=== PATIENT | male | born 1950 | race Caucasian/White ===

== ENCOUNTER 2022-06-08 13:13 | Inpatient (IN) | payer MEDICARE, OTHER ==
[~2022-06-08] VITALS: Ht 170.2 cm; Wt 74.8 kg
--- NOTE | 2022-06-08 14:15 | NUR ---
PHLEB AT BEDSIDE FOR BLOOD DRAW
[2022-06-08 14:45] LABS: BASOPHILS % (AUTO) 0.4 % (0.0-2.0); EOSINOPHILS % (AUTO) 3.1 % (0.0-6.0); HEMATOCRIT 36 % (39-51); HEMOGLOBIN 11.7 g/dL (13.5-17.5); LYMPHOCYTES # (AUTO) 2.1 K/uL (0.8-4.8); LYMPHOCYTES % (AUTO) 25.9 % (20.0-44.0); MEAN CORPUSCULAR HGB CONC 33 g/dl (31.0-36.0); MEAN CORPUSCULAR VOLUME 92 fL (80-96); MONOCYTES # (AUTO) 0.9 K/uL (0.1-1.30); MONOCYTES % (AUTO) 10.6 % (2.0-12.0); NEUTROPHILS # (AUTO) 4.8 K/uL (1.8-8.9); PLATELET COUNT (AUTO) 348 K/uL (150-450); RED BLOOD CELL COUNT(AUTO) 3.86 MIL/uL (4.5-6.0)
[2022-06-08] MEDS ORDERED: IPRA3AMP23 NEB (14:53)
[2022-06-08] MEDS ORDERED: BISA10SU11 RC (14:53)
[2022-06-08] MEDS ORDERED: METO25TA20 PO (14:53)
[2022-06-08] MEDS ORDERED: ASPI-1169 PO (14:53)
[2022-06-08] MEDS ORDERED: ACET-868 PO (14:53)
[2022-06-08] MEDS ORDERED: MAGN400O6 PO (14:53)
[2022-06-08] MEDS ORDERED: DIVA500T2 PO (14:53)
[2022-06-08] MEDS ORDERED: QUET25TA PO (14:53)
[2022-06-08] MEDS ORDERED: ALBU8.5H8 IH (14:53)
[2022-06-08] MEDS ORDERED: AMLO-213 PO (14:53)
[2022-06-08] MEDS ORDERED: TRAZ-257 PO (14:53)
[2022-06-08] MEDS ORDERED: LORA-259 PO (14:53)
[2022-06-08] MEDS ORDERED: APIX5TAB PO (14:53)
[2022-06-08] MEDS ORDERED: HYDR20VI6 IV (14:53)
[2022-06-08 15:13] LABS: ALANINE AMINOTRANSFERASE 18 U/L (12-78); ALBUMIN 3.5 g/dL (3.4-5.0); ALCOHOL, BLOOD < 3 mg/dL (0-0); ALKALINE PHOSPHATASE 51 U/L (46-116); ASPARTATE AMINOTRANSFERASE 18 U/L (15-37); BILIRUBIN,DIRECT 0.1 mg/dL (0.0-0.2); BILIRUBIN,TOTAL 0.3 mg/dL (0.2-1.0); CALCIUM, SERUM 8.7 mg/dL (8.5-10.1); CARBON DIOXIDE 25 mmol/L (21-32); CHLORIDE 102 mmol/L (98-107); CREATININE 1.3 mg/dL (0.6-1.3); GLUCOSE 76 mg/dL (74-106); POTASSIUM 4.5 mmol/L (3.5-5.1); SODIUM SERUM 136 mmol/L (136-145); TOTAL PROTEIN, SERUM 7.5 g/dL (6.4-8.2); UREA NITROGEN, BLOOD 29 mg/dL (7-18)
[2022-06-08 15:22] LABS: ACETAMINOPHEN 0 ug/ml (10-30)
[2022-06-08 20:46] LABS: BILIRUBIN,URINE NEGATIVE (NEGATIVE); COLOR,URINE YELLOW (YELLOW); LEUKOCYTE ESTERASE ,URINE NEGATIVE (NEGATIVE); NITRITE, URINE NEGATIVE (NEGATIVE); PROTEIN,URINE NEGATIVE (NEGATIVE); UGLUCOSE NEGATIVE (NEGATIVE); UROBILINOGEN,URINE 0.2 EU/dL (0.2)
[2022-06-08 21:31] LABS: BACTERIA,URINE None seen /HPF (None Seen); SQUAMOUS EPITHELIAL CELL,UR 0-2 /HPF (None Seen); WBC,URINE 0-2 /HPF (0-3)
--- NOTE | 2022-06-09 02:05 | NUR ---
SYDNEY AT BEDSIDE FOR EVAL.
[2022-06-09] MEDS ORDERED: QUETIAPINE FUMARATE 25 MG TABLET ONE (02:28)
[2022-06-09] MEDS ORDERED: QUETIAPINE FUMARATE 25 MG TABLET PO SCH (02:30)
--- NOTE | 2022-06-09 02:35 | NUR ---
PT MEDICATED ORDERED.
--- NOTE | 2022-06-09 06:16 | NUR ---
PT RESTING IN [place]. NO IMMEDIATE SIGNS OF DISTRESS NOTED. WILL CONT TO MONITOR PT.
--- NOTE | 2022-06-09 10:07 | NUR ---
CALLED AND LEFT VOICERAMILAIL SYDNEY [phone] TO RE EVALUATE PT
--- NOTE | 2022-06-09 10:50 | NUR ---
JENNIFER FRITZ, W/ PT FOR PSYCH EVAL
--- NOTE | 2022-06-09 11:42 | NUR ---
COVID SWAB COLLECTED AND SENT TO LAB
--- NOTE | 2022-06-09 15:01 | NUR ---
GOT BED 217
--- NOTE | 2022-06-09 16:02 | NUR ---
PT REPORT GIVEN TO FABIO LIGHT GPS
--- NOTE | 2022-06-09 16:05 | NUR ---
PT TRANSFERRED TO 217 VIA GURNEY. WARM HANDOFF GIVEN TO RN ASSIGNED.
[2022-06-09] MEDS ORDERED: MAG HYDROX/AL HYDROX/SIMETH 30 ML UDC PO PRN (16:30)
[2022-06-09] MEDS ORDERED: ACETAMINOPHEN 325 MG TABLET PO PRN ×2 (16:30→18:00)
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
[2022-06-09] MEDS ORDERED: ALBUTEROL FS 2.5 MG/3 ML VIAL.NEB NEB PRN (18:30)
[2022-06-09 20:54] VITALS: BP 121/73
[2022-06-09] MEDS ORDERED: OLANZAPINE 5 MG TABLET PO SCH (22:00)
[2022-06-10] MEDS: clonazePAM 0.5 MG TABLET PO PRN (04:49)
--- NOTE | 2022-06-10 04:49 | NUR ---
Pt agitated. constantly trying to leave room and roam around in hallways. Least restrictive measures ineffective. Klonopin 0.5 mg po prn given as ordered. Will continue to monitor.
[2022-06-10 08:00] VITALS: BP 138/72
[2022-06-10] MEDS: AMLODIPINE BESYLATE 10 MG TABLET PO SCH (09:00)
[2022-06-10] MEDS: ASPIRIN 81 MG TAB.CHEW PO SCH (09:00)
[2022-06-10] MEDS: APIXABAN 5 MG TABLET PO SCH ×2 (09:00→17:00)
[2022-06-10] MEDS: METOPROLOL TARTRATE 25 MG TABLET PO SCH ×2 (09:00→17:00)
--- NOTE | 2022-06-10 09:16 | NUR ---
ELAN Initial Discharge Plan: Patient was currently residing at [facility] locatd at [address] [facility] [address]. ELAN spoke with Dian ([phone]) admissions who stated that they cannot manage pt but would want pt to go to [address] [address]; ([phone]). Dian stated pt is accepted but would want clinicals to be sent when pt is stable to [facility] ([phone]) (F:[phone]). Pt does not have any supportive contact at this time. ELAN will work with the MD, doctor, and pt to help coordinate appropriate discharge.
--- NOTE | 2022-06-10 09:16 | NUR ---
ELAN Clinical Note: Pt placed on a 5150 hold for danger to others and GD. Pt was brought in due to being aggressive. Patient was currently residing at [facility] locatd at [address] [place] [address]. ELAN spoke with Dian ([phone]) admissions who stated that they cannot manage pt but would want pt to go to [address] [address]; ([phone]). Dian stated pt is accepted but would want clinicals to be sent when pt is stable to [facility] ([phone]) (F:[phone]). Pt does not have any supportive contact at this time.
--- NOTE | 2022-06-10 09:16 | NUR ---
Treatment Plan: Pt refused to sign treatment plan and was uncooperative.
[2022-06-10] MEDS: QUETIAPINE FUMARATE 25 MG TABLET PO SCH ×2 (11:00→17:00)
[2022-06-10 11:16] LABS: ALANINE AMINOTRANSFERASE 18 U/L (12-78); ALBUMIN 3.3 g/dL (3.4-5.0); ALKALINE PHOSPHATASE 53 U/L (46-116); ASPARTATE AMINOTRANSFERASE 30 U/L (15-37); BILIRUBIN,TOTAL 0.3 mg/dL (0.2-1.0); CALCIUM, SERUM 8.5 mg/dL (8.5-10.1); CARBON DIOXIDE 27 mmol/L (21-32); CHLORIDE 101 mmol/L (98-107); CREATININE 2.3 mg/dL (0.6-1.3); GLUCOSE 95 mg/dL (74-106); SODIUM SERUM 137 mmol/L (136-145); TOTAL PROTEIN, SERUM 7.1 g/dL (6.4-8.2); UREA NITROGEN, BLOOD 51 mg/dL (7-18)
[2022-06-10 11:18] LABS: CHOLESTEROL 160 mg/dL (<200); HDL CHOLESTEROL 58 mg/dL (40-60); LDL 88 mg/dL (0-99); TRIGLYCERIDES 73 mg/dL (30-150)
--- NOTE | 2022-06-10 11:24 | NUR ---
PATIENT REFUSED AM MEDS. CATTLE SHIPPER EDUCATED PATIENT ON THE IMPORTANCE OF HIS ELIQUIS 5MG AND METOPROLOL. CATTLE SHIPPER ENCOURAGED PATIENT TO TAKE MEDS, STILL HE REFUSED. REFUSED TO EAT BREAKFAST. SALLY Godinez RN, BSN
--- NOTE | 2022-06-10 11:38 | NUR ---
RN-CO: Notified Dr Collins regarding pt's BUN 51 and crea 2.3. However pt has CKD.
[2022-06-10] MEDS: DIVALPROEX SODIUM 500 MG TABLET.DR PO SCH ×3 (12:49→17:00)
--- NOTE | 2022-06-10 12:53 | NUR ---
RN-CO: KLONOPIN MG PO GIVEN FOR RESTLESSNESS.
--- NOTE | 2022-06-10 12:55 | NUR ---
RN-CO: PT REFUSED DEPAKOTE, PT THREW IT ON THE FLOOR.
[2022-06-10 16:00] VITALS: BP 149/70
--- NOTE | 2022-06-10 17:27 | NUR ---
RN-CO: PT REFUSED ALL HIS MEDICATIONS INSPITE OF ALL THE ENCOURAGEMENT.
[2022-06-10 19:58] VITALS: BP 151/70
[2022-06-10] MEDS: TEMAZEPAM 7.5 MG CAPSULE PO PRN (21:10)
[2022-06-10] MEDS: TRAZODONE 50 MG TABLET PO SCH (21:11)
[2022-06-11 08:00] VITALS: BP 114/65
[2022-06-11] MEDS: AMLODIPINE BESYLATE 10 MG TABLET PO SCH (09:32)
[2022-06-11] MEDS: DIVALPROEX SODIUM 125 MG CAP.SPRINK PO SCH ×3 (09:32→17:35)
[2022-06-11] MEDS: QUETIAPINE FUMARATE 25 MG TABLET PO SCH ×2 (09:33→17:35)
[2022-06-11] MEDS: METOPROLOL TARTRATE 25 MG TABLET PO SCH ×3 (09:33→17:41)
[2022-06-11] MEDS: ASPIRIN 81 MG TAB.CHEW PO SCH (09:34)
[2022-06-11 09:49] LABS: BASOPHILS % (AUTO) 0.5 % (0.0-2.0); EOSINOPHILS % (AUTO) 2.5 % (0.0-6.0); HEMATOCRIT 36 % (39-51); HEMOGLOBIN 11.9 g/dL (13.5-17.5); LYMPHOCYTES # (AUTO) 1.9 K/uL (0.8-4.8); LYMPHOCYTES % (AUTO) 25.4 % (20.0-44.0); MEAN CORPUSCULAR HGB CONC 33 g/dl (31.0-36.0); MEAN CORPUSCULAR VOLUME 93 fL (80-96); MONOCYTES # (AUTO) 0.6 K/uL (0.1-1.30); MONOCYTES % (AUTO) 8.5 % (2.0-12.0); NEUTROPHILS # (AUTO) 4.8 K/uL (1.8-8.9); NEUTROPHILS % (AUTO) 63.1 % (43.0-81.0); PLATELET COUNT (AUTO) 347 K/uL (150-450); RED BLOOD CELL COUNT(AUTO) 3.89 MIL/uL (4.5-6.0); WHITE BLOOD COUNT (AUTO) 7.6 K/uL (4.3-11.0)
[2022-06-11] MEDS: APIXABAN 5 MG TABLET PO SCH ×2 (10:05→17:37)
[2022-06-11 10:50] LABS: CALCIUM, SERUM 8.7 mg/dL (8.5-10.1); CARBON DIOXIDE 29 mmol/L (21-32); CHLORIDE 103 mmol/L (98-107); CREATININE 1.7 mg/dL (0.6-1.3); GLUCOSE 157 mg/dL (74-106); POTASSIUM 3.7 mmol/L (3.5-5.1); SODIUM SERUM 138 mmol/L (136-145); UREA NITROGEN, BLOOD 53 mg/dL (7-18)
[2022-06-11 16:00] VITALS: BP 106/82
--- NOTE | 2022-06-11 18:00 | NUR ---
RN NOTES PATIENT AWOL RISK, AMBULATORY, DUE MEDICATION ADMINISTERED CRUSHED, REDIRECTABLE. SAFETY PRECAUTION MAINTAINED ALL THE TIME.
[2022-06-11 20:00] VITALS: BP 101/69
--- NOTE | 2022-06-11 20:45 | NUR ---
CHIEF FISHERY DIVISION. Received patient Confused, disorganized and irritable. Encouraged patient to verbalized feelings and thoughts. Will continue to monitor for safety and behavior.
[2022-06-11] MEDS: TRAZODONE 50 MG TABLET PO SCH (21:19)
[2022-06-12 08:00] VITALS: BP 126/75
[2022-06-12] MEDS: ASPIRIN 81 MG TAB.CHEW PO SCH (08:29)
[2022-06-12] MEDS: DIVALPROEX SODIUM 125 MG CAP.SPRINK PO SCH ×3 (08:29→16:42)
[2022-06-12] MEDS: QUETIAPINE FUMARATE 25 MG TABLET PO SCH ×2 (08:29→16:42)
[2022-06-12] MEDS: METOPROLOL TARTRATE 25 MG TABLET PO SCH ×2 (08:29→16:42)
[2022-06-12] MEDS: AMLODIPINE BESYLATE 10 MG TABLET PO SCH (08:30)
[2022-06-12] MEDS: APIXABAN 5 MG TABLET PO SCH ×2 (08:35→16:43)
[2022-06-12 16:00] VITALS: BP 111/66
[2022-06-12 20:00] VITALS: BP 138/77
--- NOTE | 2022-06-12 20:16 | NUR ---
marketing assistant notes: Received pt in the hallway. awake. sitting in a umer chair. a/o x1. confused. on room air. breathing and unlabored. no s/s of acute distress noted. safety measures in place. will continue to monitor for safety and behavior.
[2022-06-12] MEDS: TRAZODONE 50 MG TABLET PO SCH (21:44)
[2022-06-13] MEDS: TEMAZEPAM 7.5 MG CAPSULE PO PRN (01:42)
--- NOTE | 2022-06-13 01:47 | NUR ---
TELEPHOTO ENGINEER NOTES: GIVEN PRN RESTORIL 7.5 MG PO FOR INSOMNIA. NO ACUTE S/S OF RESPIRATORY DISTRESS NOTED. WILL MONITOR CLOSELY.
--- NOTE | 2022-06-13 06:31 | NUR ---
chemical research engineer notes: Pt in his room sleeping. calm. no acute distress noted. a/o X1. pt confused and disorganized. med compliant. meds given crushed in apple sauce. ambulatory with a steady gait. Needs anticipated and rendered. safety measures observed.
[2022-06-13 08:00] VITALS: BP 121/68
[2022-06-13] MEDS: ASPIRIN 81 MG TAB.CHEW PO SCH (08:30)
[2022-06-13] MEDS: DIVALPROEX SODIUM 125 MG CAP.SPRINK PO SCH ×3 (08:30→17:35)
[2022-06-13] MEDS: QUETIAPINE FUMARATE 25 MG TABLET PO SCH ×2 (08:31→17:35)
[2022-06-13] MEDS: METOPROLOL TARTRATE 25 MG TABLET PO SCH ×2 (08:32→17:37)
[2022-06-13] MEDS: AMLODIPINE BESYLATE 10 MG TABLET PO SCH (08:32)
[2022-06-13] MEDS: APIXABAN 5 MG TABLET PO SCH ×2 (08:33→17:36)
[2022-06-13] MEDS: clonazePAM 0.5 MG TABLET PO PRN (14:15)
[2022-06-13 16:00] VITALS: BP 119/72
[2022-06-13 18:01] LABS: CALCIUM, SERUM 8.8 mg/dL (8.5-10.1); CREATININE 1.1 mg/dL (0.6-1.3); POTASSIUM 4.8 mmol/L (3.5-5.1)
[2022-06-13 20:00] VITALS: BP 103/58
[2022-06-13] MEDS: TRAZODONE 50 MG TABLET PO SCH (21:29)
[2022-06-14 08:00] VITALS: BP 134/69
[2022-06-14] MEDS: QUETIAPINE FUMARATE 25 MG TABLET PO SCH ×2 (08:39→17:18)
[2022-06-14] MEDS: ASPIRIN 81 MG TAB.CHEW PO SCH (08:39)
[2022-06-14] MEDS: AMLODIPINE BESYLATE 10 MG TABLET PO SCH (08:40)
[2022-06-14] MEDS: METOPROLOL TARTRATE 25 MG TABLET PO SCH ×2 (08:40→17:19)
[2022-06-14] MEDS: DIVALPROEX SODIUM 125 MG CAP.SPRINK PO SCH ×3 (08:41→17:18)
[2022-06-14] MEDS: APIXABAN 5 MG TABLET PO SCH ×2 (08:41→17:20)
[2022-06-14 16:00] VITALS: BP 128/71
--- NOTE | 2022-06-14 19:30 | NUR ---
GPS RN Note Received patient in this room sleeping. calm. no acute distress noted. a/o X1. pt confused and disorganized. med compliant. Pt ambulatory with steady gait. Needs anticipated and rendered. safety measures observed.
[2022-06-14 20:26] VITALS: BP 106/59
--- NOTE | 2022-06-14 21:00 | NUR ---
GPS RN NOTE PT IS AGGRESSIVE, AND COMBATIVE, HE REFUSES SKIN ASSESSMENT, AND PICTURES TO BE TAKEN. CHARGE NURSE NOTIFIED.
[2022-06-14] MEDS: TRAZODONE 50 MG TABLET PO SCH (21:38)
--- NOTE | 2022-06-15 06:51 | NUR ---
GPS RN NOTE PT LEFT IN STABLE CONDITION. ALL NEEDS ATTENDED, ALL MEDS ADMINISTERED ON TIMELY MANNER. NO ACUTE DISTRESS, OR PAIN NOTED. WILL ENDORSE PT TO AM SHIFT NURSE FOR CONTINUITY OF CARE.
--- NOTE | 2022-06-15 06:52 | NUR ---
PT REFUSED SKIN ASSESSMENT, AND PICTURES.
[2022-06-15 08:00] VITALS: BP 114/55
[2022-06-15] MEDS: QUETIAPINE FUMARATE 25 MG TABLET PO SCH ×2 (08:43→16:54)
[2022-06-15] MEDS: DIVALPROEX SODIUM 125 MG CAP.SPRINK PO SCH ×3 (08:43→16:54)
[2022-06-15] MEDS: ASPIRIN 81 MG TAB.CHEW PO SCH (08:43)
[2022-06-15] MEDS: METOPROLOL TARTRATE 25 MG TABLET PO SCH ×2 (08:44→16:55)
[2022-06-15] MEDS: AMLODIPINE BESYLATE 10 MG TABLET PO SCH (08:45)
[2022-06-15] MEDS: APIXABAN 5 MG TABLET PO SCH ×2 (09:02→16:55)
--- NOTE | 2022-06-15 11:36 | NUR ---
NURSE NOTE: PT UNABLE TO SLEEP AT THIS TIME. WIDE AWAKE. TEMAZEPAM ADMINISTERED ORDERED. PT CHAU WELL. WILL CONT TO MONITOR. Addendum: 06/16/22 at 0057 by SERGIO SWEET RN TEMAZEPAM GIVEN AT 2336 NOT 1136. ACCIDENTALLY PUT WRONG TIME FOR NOTE.
[2022-06-15 16:00] VITALS: BP 160/66
[2022-06-15] MEDS: TRAZODONE 50 MG TABLET PO SCH (21:07)
[2022-06-15 21:33] VITALS: BP 120/70
[2022-06-15] MEDS: TEMAZEPAM 7.5 MG CAPSULE PO PRN (23:36)
--- NOTE | 2022-06-16 00:36 | NUR ---
NURSE NOTE: PT DROWSY AT THIS TIME. TEMAZEPAM EFFECTIVE AT THIS TIME. WILL CONT TO MONITOR.
[2022-06-16] MEDS: clonazePAM 0.5 MG TABLET PO PRN (01:26)
--- NOTE | 2022-06-16 01:35 | NUR ---
NURSE NOTE: PT AGITATED AT THIS TIME. UNABLE TO SLEEP. CLONOPIN PO ADMINISTERED ORDERED. PT CHAU WELL. WILL CONT TO MONITOR.
[2022-06-16 08:00] VITALS: BP 113/46
--- NOTE | 2022-06-16 08:15 | NUR ---
SNF Referral: ELAN sent clinicals to [facility] to admin Bennie ([phone]) (F:[phone]) for placement. ELAN sent H & P, progress notes, and medication list.
--- NOTE | 2022-06-16 09:40 | NUR ---
Court Notification: SW unable to notify for 5250 hearing due to pt not having any supportive contact.
[2022-06-16] MEDS: DIVALPROEX SODIUM 125 MG CAP.SPRINK PO SCH ×3 (09:51→17:39)
[2022-06-16] MEDS: ASPIRIN 81 MG TAB.CHEW PO SCH (09:51)
[2022-06-16] MEDS: QUETIAPINE FUMARATE 25 MG TABLET PO SCH ×2 (09:51→17:40)
[2022-06-16] MEDS: METOPROLOL TARTRATE 25 MG TABLET PO SCH ×2 (09:55→17:40)
[2022-06-16] MEDS: AMLODIPINE BESYLATE 10 MG TABLET PO SCH (09:55)
[2022-06-16] MEDS: APIXABAN 5 MG TABLET PO SCH ×2 (09:56→17:43)
--- NOTE | 2022-06-16 12:37 | NUR ---
Court Hearing: Patient's court hearing for 4130 was today and it was upheld for GD.
--- NOTE | 2022-06-16 13:25 | NUR ---
SNF Contact: SW received a call from [facility] to admin Bennie ([phone]) (F:[phone]) and stated they cannot accept pt due to pt not having nursing facility days.
--- NOTE | 2022-06-16 13:25 | NUR ---
SNF Referral: ELAN sent clinicals to [facility] ([phone]) from [facility] for placement. SW sent H & P, progress notes, and medication list.
--- NOTE | 2022-06-16 15:38 | NUR ---
RN NOTE- TEENAGE PROGRAM DIRECTOR REPORTED PT HASN'T VOIDED THIS SHIFT. BLADDER SCAN SHOWED NO UA RETENTION. PT VOIDED IN DIAPER DURING ASSESSMENT.
[2022-06-16 16:07] VITALS: BP 133/90
[2022-06-16 19:29] VITALS: BP 105/73
[2022-06-16] MEDS: TRAZODONE 50 MG TABLET PO SCH (21:31)
[2022-06-17 08:00] VITALS: BP 105/55
[2022-06-17] MEDS: QUETIAPINE FUMARATE 25 MG TABLET PO SCH ×2 (08:54→17:19)
[2022-06-17] MEDS: APIXABAN 5 MG TABLET PO SCH ×2 (08:55→17:21)
[2022-06-17] MEDS: ASPIRIN 81 MG TAB.CHEW PO SCH (08:55)
[2022-06-17] MEDS: METOPROLOL TARTRATE 25 MG TABLET PO SCH ×2 (08:56→17:21)
[2022-06-17] MEDS: AMLODIPINE BESYLATE 10 MG TABLET PO SCH (08:56)
[2022-06-17] MEDS: DIVALPROEX SODIUM 125 MG CAP.SPRINK PO SCH ×3 (08:57→17:19)
--- NOTE | 2022-06-17 13:53 | NUR ---
ELAN Facility Contact: ELAN contacted [facility] ([phone]) for placement. ELAN had sent H & P, progress notes, and medication list. Flo stated that [facility] accepted pt.
--- NOTE | 2022-06-17 13:53 | NUR ---
SNF Contact: ELAN sent clinicals to [facility] ([phone]) from [facility] who stated they cannot accept pt.
[2022-06-17 16:00] VITALS: BP 123/80
[2022-06-17] MEDS: MAGNESIUM HYDROXIDE 30 ML UDC PO PRN (18:40)
--- NOTE | 2022-06-17 18:40 | NUR ---
NURSE NOTE: PT HAS NOT HAD BM SINCE 06/13. MOM ADMIN ORDERED. PT CHAU WELL. WILL ENDORSE TO PM SHIFT.
[2022-06-17 19:53] VITALS: BP 130/66
[2022-06-17] MEDS: TRAZODONE 50 MG TABLET PO SCH (22:20)
[2022-06-18 08:00] VITALS: BP 134/79
[2022-06-18] MEDS: QUETIAPINE FUMARATE 25 MG TABLET PO SCH ×2 (09:45→16:56)
[2022-06-18] MEDS: ASPIRIN 81 MG TAB.CHEW PO SCH (09:45)
[2022-06-18] MEDS: DIVALPROEX SODIUM 125 MG CAP.SPRINK PO SCH ×3 (09:46→16:55)
[2022-06-18] MEDS: METOPROLOL TARTRATE 25 MG TABLET PO SCH ×2 (09:46→16:56)
[2022-06-18] MEDS: AMLODIPINE BESYLATE 10 MG TABLET PO SCH (09:46)
[2022-06-18] MEDS: APIXABAN 5 MG TABLET PO SCH ×2 (09:47→16:56)
[2022-06-18 16:00] VITALS: BP 119/63
--- NOTE | 2022-06-18 18:28 | NUR ---
RN-NOTES PATIENT IN THE DAY ROOM UP IN THE YOIN CHAIR NEEDS MODERATE ASSIST WITH ADL'S. COMPLIANT WITH MEDICATIONS.NOTED WITH EPISODE OF AGGRESSIVE WITH THE STAFF DURING CARE. NEEDS REDIRECTIONS AND INSTRUCTIONS. ALL NEEDS ATTENDED AND ANTICIPATED. WILL CONT. MONITORING FOR SAFETY AND BEHAVIOR.WILL ENDORSE TO INCOMING NURSE FOR CONTINUITY OF CARE.
[2022-06-18 20:00] VITALS: BP 110/73
--- NOTE | 2022-06-18 20:06 | NUR ---
GPS MILITARY LOGISTICS SPECIALIST-NOTES PATIENT RECEIVED AWAKE A/O X 1 IRRITABLE, BREATHING EVEN AND UNLABORED @ RA NO S/SX OF RESP DISTRESS NOTED AT THIS TIME, PT IN THE DAY ROOM UP IN THE YONI CHAIR NEEDS MODERATE ASSIST WITH ADL'S.NOTED WITH EPISODE OF AGGRESSIVE WITH THE STAFF DURING CARE. NEEDS REDIRECTIONS AND INSTRUCTIONS. WILL MONITOR FOR SAFETY AND BEHAVIOR.
[2022-06-18] MEDS: TRAZODONE 50 MG TABLET PO SCH (21:02)
--- NOTE | 2022-06-18 21:54 | NUR ---
DUE MEDS GIVEN, PT COMPLIANT WITH HIS MEDICATION. PT IS CALM AT THIS TIME, NO S/SX OF DISTRESS OR DISCOMFORT NOTED. WILL CONT TO MONITOR BEHAVIOR AND SAFETY.
[2022-06-18] MEDS: TEMAZEPAM 7.5 MG CAPSULE PO PRN (22:20)
--- NOTE | 2022-06-18 22:21 | NUR ---
PT REMAINS WIDE AWAKE , CALM , PRN RESTORIL 7.5 MG CAP GIVEN FOR INSOMNIA. WILL CONT TO MONITOR.
--- NOTE | 2022-06-18 23:20 | NUR ---
1 HR POST RESTORIL PT NOTED SLEEPING, EASY TO AROUSE, BREATHING EVEN AND UNLABORED. WILL CONT TO MONITOR AND ANTICIPATE NEEDS.
--- NOTE | 2022-06-18 23:53 | NUR ---
PT IN HIS BEDROOM , SLEEPING, EASY TO AROUSE, BREATHING EVEN AND UNLABORED. WILL CONT TO MONITOR AND ANTICIPATE NEEDS. SAFETY MEASURES OBSERVED.
--- NOTE | 2022-06-19 06:10 | NUR ---
PT REMAINS IN HIS BED, AM CARE PROVIDED BY CNAS, TOLERATED WELL BY PT, PT SLEPT WELL DURING SHIFT TOTAL HRS OF SLEEP: 7 , AND TOLERATED MEDICATIONS. NO SIGNIFICANT CHANGE OF CONDITION NOTED. SAFETY MEASURES OBSERVED. CONT TO MONITOR AND WILL ENDORSE CONTINUATION OF CARE TO AM ONCOMING NURSE.
--- NOTE | 2022-06-19 06:50 | NUR ---
electronic warfare technical reported to nurse and charge nurse that pt refused blood draw for BMP. Will endorse to am oncoming nurse.
[2022-06-19 08:00] VITALS: BP 108/54
[2022-06-19] MEDS: METOPROLOL TARTRATE 25 MG TABLET PO SCH ×2 (09:00→16:12)
[2022-06-19] MEDS: AMLODIPINE BESYLATE 10 MG TABLET PO SCH (09:00)
[2022-06-19] MEDS: ASPIRIN 81 MG TAB.CHEW PO SCH (09:27)
[2022-06-19] MEDS: DIVALPROEX SODIUM 125 MG CAP.SPRINK PO SCH ×3 (09:28→16:11)
[2022-06-19] MEDS: QUETIAPINE FUMARATE 25 MG TABLET PO SCH ×2 (09:29→16:11)
[2022-06-19] MEDS: APIXABAN 5 MG TABLET PO SCH ×2 (09:30→16:12)
[2022-06-19 13:46] LABS: CALCIUM, SERUM 8.8 mg/dL (8.5-10.1); CARBON DIOXIDE 31 mmol/L (21-32); CHLORIDE 104 mmol/L (98-107); CREATININE 1.2 mg/dL (0.6-1.3); GLUCOSE 121 mg/dL (74-106); POTASSIUM 4.1 mmol/L (3.5-5.1); SODIUM SERUM 140 mmol/L (136-145); UREA NITROGEN, BLOOD 25 mg/dL (7-18)
[2022-06-19 16:00] VITALS: BP 106/77
--- NOTE | 2022-06-19 19:29 | NUR ---
RN-NOTES PATIENT IN THE DAY ROOM UP IN THE YONI CHAIR NEEDS MODERATE ASSIST WITH ADL'S. COMPLIANT WITH MEDICATIONS.NOTED WITH EPISODE OF AGGRESSIVE WITH THE STAFF DURING CARE. NEEDS REDIRECTIONS AND INSTRUCTIONS. ALL NEEDS ATTENDED AND ANTICIPATED. WILL CONT. MONITORING FOR SAFETY AND BEHAVIOR.WILL ENDORSE TO INCOMING NURSE FOR CONTINUITY OF CARE.
[2022-06-19 20:00] VITALS: BP 127/93
--- NOTE | 2022-06-19 20:39 | NUR ---
CAR CHECKER NOTES: RECEIVED PT IN THE HALLWAY SITTING IN YONI CHAIR. A/O x1. CALM. ON ROOM AIR. BREATHING EVEN AND UNLABORED. NO ACUTE DISTRESS NOTED. PT AMBULATORY WITH ASSISTANCE. SAFETY MEASURES IN PLACE. WILL CONTINUE TO MONITOR FOR SAFETY AND BEHAVIOR.
[2022-06-19] MEDS: TRAZODONE 50 MG TABLET PO SCH (22:18)
--- NOTE | 2022-06-20 07:08 | NUR ---
STOCK WETTER NOTES: PATIENT BACK IN YONI CHAIR IN HALLWAY. CALM AT THIS TIME. NO ACUTE DISTRESS NOTED. ALL NEEDS ANTICIPATED AND RENDERED. SAFETY MEASURES IN PLACE. WILL ENDORSE TO ONCOMING SHIFT FOR CONTINUITY OF CARE.
[2022-06-20 08:00] VITALS: BP 134/77
[2022-06-20] MEDS: DIVALPROEX SODIUM 125 MG CAP.SPRINK PO SCH ×3 (08:48→16:35)
[2022-06-20] MEDS: ASPIRIN 81 MG TAB.CHEW PO SCH (08:49)
[2022-06-20] MEDS: QUETIAPINE FUMARATE 25 MG TABLET PO SCH ×2 (08:49→16:34)
[2022-06-20] MEDS: METOPROLOL TARTRATE 25 MG TABLET PO SCH ×2 (08:49→16:34)
[2022-06-20] MEDS: AMLODIPINE BESYLATE 10 MG TABLET PO SCH (08:49)
[2022-06-20] MEDS: APIXABAN 5 MG TABLET PO SCH ×2 (08:51→16:35)
[2022-06-20 16:00] VITALS: BP 108/76
[2022-06-20 19:53] VITALS: BP 110/69
[2022-06-20 20:16] VITALS: BP 110/69
[2022-06-20] MEDS: TRAZODONE 50 MG TABLET PO SCH (21:04)
--- NOTE | 2022-06-21 04:52 | NUR ---
QUIET, ANSWERS TO NAME, NON COMPLIANT WITH MEDICATION, SPITTING MEDICATON, ALWAYS TRYING TO GET OUT OF BED, UNSTEADY, FALL RISK, WILL CONTINUE TO MONITOR.
[2022-06-21 08:00] VITALS: BP_SYST 139; BP_SYST 142; BP_DIAS 95; BP_DIAS 98
[2022-06-21] MEDS: ASPIRIN 81 MG TAB.CHEW PO SCH (08:31)
[2022-06-21] MEDS: AMLODIPINE BESYLATE 10 MG TABLET PO SCH (08:32)
[2022-06-21] MEDS: DIVALPROEX SODIUM 125 MG CAP.SPRINK PO SCH ×3 (08:32→16:21)
[2022-06-21] MEDS: METOPROLOL TARTRATE 25 MG TABLET PO SCH ×2 (08:32→16:21)
[2022-06-21] MEDS: QUETIAPINE FUMARATE 100 MG TABLET PO SCH ×3 (08:32→16:21)
[2022-06-21] MEDS: APIXABAN 5 MG TABLET PO SCH ×2 (08:34→16:21)
[2022-06-21 16:00] VITALS: BP 101/70
--- NOTE | 2022-06-21 19:30 | NUR ---
GPS RN OPENING NOTE RECEIVED PATIENT RESTING IN BED, VERBALLY RESPONSIVE. A/OX1. PT STABLE ON ROOM AIR. NO SOB OR S/S OF RESPIRATORY DISTRESS. BREATHING EVEN AND UNLABORED. PT IS IRRITABLE, CONFUSED, AND DISORGANIZED. SAFETY PRECAUTIONS IN PLACE. WILL CONTINUE TO MONITOR Q15MIN ROUNDS FOR SAFETY AND BEHAVIOR.
[2022-06-21 20:35] VITALS: BP 127/60
[2022-06-21] MEDS: TRAZODONE 50 MG TABLET PO SCH (21:51)
[2022-06-22 08:00] VITALS: BP 121/63
[2022-06-22] MEDS: QUETIAPINE FUMARATE 100 MG TABLET PO SCH ×3 (08:42→17:00)
[2022-06-22] MEDS: ASPIRIN 81 MG TAB.CHEW PO SCH (08:42)
[2022-06-22] MEDS: DIVALPROEX SODIUM 125 MG CAP.SPRINK PO SCH ×3 (08:42→17:00)
[2022-06-22] MEDS: APIXABAN 5 MG TABLET PO SCH ×2 (08:44→17:02)
[2022-06-22] MEDS: METOPROLOL TARTRATE 25 MG TABLET PO SCH ×2 (08:44→17:00)
[2022-06-22] MEDS: AMLODIPINE BESYLATE 10 MG TABLET PO SCH (08:45)
[2022-06-22] MEDS: MAGNESIUM HYDROXIDE 30 ML UDC PO PRN (15:50)
[2022-06-22 16:00] VITALS: BP 109/56
[2022-06-22 20:39] VITALS: BP 145/63
[2022-06-22] MEDS: TRAZODONE 50 MG TABLET PO SCH (21:12)
[2022-06-23] MEDS: clonazePAM 0.5 MG TABLET PO PRN (02:37)
[2022-06-23 08:00] VITALS: BP 148/88
[2022-06-23] MEDS: QUETIAPINE FUMARATE 100 MG TABLET PO SCH ×3 (08:53→16:30)
[2022-06-23] MEDS: ASPIRIN 81 MG TAB.CHEW PO SCH (08:54)
[2022-06-23] MEDS: AMLODIPINE BESYLATE 10 MG TABLET PO SCH (08:54)
[2022-06-23] MEDS: DIVALPROEX SODIUM 125 MG CAP.SPRINK PO SCH ×3 (08:54→16:31)
[2022-06-23] MEDS: METOPROLOL TARTRATE 25 MG TABLET PO SCH ×2 (08:55→16:31)
[2022-06-23] MEDS: APIXABAN 5 MG TABLET PO SCH ×2 (08:56→16:32)
[2022-06-23 12:31] LABS: CARBON DIOXIDE 27 mmol/L (21-32); CHLORIDE 105 mmol/L (98-107); CREATININE 1.2 mg/dL (0.6-1.3); GLUCOSE 142 mg/dL (74-106); POTASSIUM 3.8 mmol/L (3.5-5.1); SODIUM SERUM 139 mmol/L (136-145); UREA NITROGEN, BLOOD 28 mg/dL (7-18)
[2022-06-23 16:00] VITALS: BP 125/70
[2022-06-23 20:29] VITALS: BP 146/84
[2022-06-23] MEDS: TRAZODONE 50 MG TABLET PO SCH (21:05)
[2022-06-24 08:00] VITALS: BP_SYST 121; BP_SYST 144; BP_DIAS 65; BP_DIAS 86
[2022-06-24] MEDS: QUETIAPINE FUMARATE 100 MG TABLET PO SCH ×3 (08:50→16:33)
[2022-06-24] MEDS: AMLODIPINE BESYLATE 10 MG TABLET PO SCH (08:50)
[2022-06-24] MEDS: ASPIRIN 81 MG TAB.CHEW PO SCH (08:50)
[2022-06-24] MEDS: METOPROLOL TARTRATE 25 MG TABLET PO SCH ×2 (08:51→16:34)
[2022-06-24] MEDS: DIVALPROEX SODIUM 125 MG CAP.SPRINK PO SCH ×3 (08:52→16:33)
[2022-06-24] MEDS: APIXABAN 5 MG TABLET PO SCH ×2 (08:53→16:39)
[2022-06-24 19:50] VITALS: BP 149/86
[2022-06-24] MEDS: TRAZODONE 50 MG TABLET PO SCH (21:32)
[2022-06-24] MEDS: TEMAZEPAM 7.5 MG CAPSULE PO PRN (21:32)
--- NOTE | 2022-06-24 21:33 | NUR ---
Pt unable to sleep. Least restrictive measures ineffective. Restoril 7.5 mg po prn given as ordered. Will continue to monitor.
--- NOTE | 2022-06-24 22:50 | NUR ---
Post 1 hr Restoril effective. Pt asleep in bed easy to arouse. Will continue to monitor. Frequent visual check done for safety.
[2022-06-25 08:00] VITALS: BP 122/86
[2022-06-25] MEDS: ASPIRIN 81 MG TAB.CHEW PO SCH (08:27)
[2022-06-25] MEDS: QUETIAPINE FUMARATE 100 MG TABLET PO SCH ×3 (08:27→16:49)
[2022-06-25] MEDS: DIVALPROEX SODIUM 125 MG CAP.SPRINK PO SCH ×3 (08:27→16:49)
[2022-06-25] MEDS: AMLODIPINE BESYLATE 10 MG TABLET PO SCH (08:28)
[2022-06-25] MEDS: METOPROLOL TARTRATE 25 MG TABLET PO SCH ×2 (08:28→16:49)
[2022-06-25] MEDS: APIXABAN 5 MG TABLET PO SCH ×2 (08:29→16:49)
[2022-06-25 16:00] VITALS: BP 143/95
--- NOTE | 2022-06-25 17:52 | NUR ---
RN-NOTES PATIENT IN THE DAY ROOM UP IN THE YONI CHAIR AWAKE,A/OX1. COMPLIANT WITH MEDICATIONS .NEEDS MODERATE ASSIST WITH ADL'S. NEEDS DIRECTIONS AND INSTRUCTIONS. ALL NEEDS ATTENDED AND ANTICIPATED. WILL CONT. MONITORING FOR SAFETY AND BEHAVIOR.WILL ENDORSE TO INCOMING NURSE FOR CONTINUITY OF CARE.
[2022-06-25 20:11] VITALS: BP 149/86
--- NOTE | 2022-06-25 20:27 | NUR ---
PATIENT IN THE THE YONI CHAIR AWAKE, A/OX1. PATIENT APPEARS CONFUSED , DISORGANIZED NEEDS MODERATE ASSIST WITH CARE AND ADL. WILL CONT. MONITORING FOR SAFETY AND BEHAVIOR.
[2022-06-25] MEDS: TRAZODONE 50 MG TABLET PO SCH (21:52)
[2022-06-26 08:00] VITALS: BP 140/84
--- NOTE | 2022-06-26 08:10 | NUR ---
SW Discharge Note: Patient will be discharged to alf facility to [facility] [address] [place] [address]; . Please arrange Ambulance transportation for patient to be picked up at 1PM. Tree Marker spoke with BOB, Simulation Engineer at [facility]; ([phone]), who stated patient will be accepted at facility today. Patient is alert and oriented x2. Patient denies any suicidal or homicidal ideations. Patient is aware and agreeable with discharge plans. Patient does not have any supportive contact at this time. Patient will continue to follow-up with her Psychiatrist Dr. Melton [id number] [address]; ([phone]) and [address] Dr. Dunn [address] [place] [address]; . Patient presents with euthymic mood and congruent affect.
--- NOTE | 2022-06-26 09:03 | NUR ---
Dr. Elliott gave an order to D/C hold and D/C to [facility] and to follow up with psych and medical doctors. Dr. Elliott ordered to continue same meds including prn.
[2022-06-26] MEDS: DIVALPROEX SODIUM 125 MG CAP.SPRINK PO SCH (09:23)
[2022-06-26 09:24] VITALS: BP 140/84
[2022-06-26] MEDS: AMLODIPINE BESYLATE 10 MG TABLET PO SCH (09:24)
[2022-06-26] MEDS: ASPIRIN 81 MG TAB.CHEW PO SCH (09:24)
[2022-06-26] MEDS: QUETIAPINE FUMARATE 100 MG TABLET PO SCH (09:24)
[2022-06-26] MEDS: METOPROLOL TARTRATE 25 MG TABLET PO SCH (09:24)
[2022-06-26] MEDS: APIXABAN 5 MG TABLET PO SCH (09:25)
--- NOTE | 2022-06-26 13:35 | NUR ---
RN-NOTES PATIENT HAD A DISCHARGE ORDER FROM DR. WAGNER ( PSYCHIATRIST) DR. DUKES MEDICALLY CLEARED PATIENT FOR DISCHARGE. PATIENT WAS DISCHARGE TO [facility] .REPORT WAS GIVEN TO HAYDEE (RN). PATIENT WAS PHYSICIST ASTROPHYSICS BY AMBULANCE VIA GURNEY WITH TWO STAFF ASSIST, PATIENT DID NOT VERBALIZE SI/HI,DENIES VISUAL/AUDITORY HALLUCINATIONS AT THE TIME OF DISCHARGE. PATIENT LEFT THE UNIT IN STABLE CONDITION A/O X1 IN STABLE CONDITION. ALL BELONGINGS WAS GIVEN BACK TO THE PATIENT.PATIENT REFUSED FULL BODY ASSESSMENT PRIOR TO DISCHARGE.
== END 2022-06-26 13:35 | DRG 885 ==
LOC: ER 13:45 → GPS 06-09 15:41
PROVIDERS: ADMIT Nurse Practitioner Psychiatric/Mental Health
DX: F25.9 Schizoaffective disorder, unspecified (principal); N18.9 Chronic kidney disease, unspecified; N17.0 Acute kidney failure with tubular necrosis; I48.20 Chronic atrial fibrillation, unspecified; F03.918 Unspecified dementia, unspecified severity, with other behavioral disturbance; F29 Unspecified psychosis not due to a substance or known physiological condition; D63.8 Anemia in other chronic diseases classified elsewhere; Z20.822 Contact with and (suspected) exposure to COVID-19; Z73.6 Limitation of activities due to disability; I12.9 Hypertensive chronic kidney disease with stage 1 through stage 4 chronic kidney disease, or unspecified chronic kidney disease; Z79.01 Long term (current) use of anticoagulants
CPT/HCPCS: 36415; 80048-TC; 80053-TC; 80061-TC; 80076-TC; 80164-TC; 81001; 85025-TC; 87081-TC; C9803; G0480; U0003